=== PATIENT | male | born 1975 | race African-American/Black ===

== ENCOUNTER 2019-03-24 12:11 | Emergency (ER) | payer BC, MEDICAID ==
[~2019-03-24] VITALS: Ht 175.3 cm; Wt 71.7 kg
[2019-03-24] MEDS ORDERED: SODIUM CHLORIDE 0.9% 1,000 ML IV ONE ×2 (12:34)
[2019-03-24 13:10] LABS: Basophils # (auto) 0 uL; Eosinophils # (auto) 0 uL; Eosinophils % (auto) 0.1 % (0.0-7.0)
[2019-03-24 13:12] LABS: Basophils % (auto) 0.3 % (0.0-2.0); Hematocrit 40.7 % (41.0-53.0); Lymphocytes # (auto) 1.1 uL; Mean Corpuscular Hemoglobin 35.3 pg (28.0-32.0); Mean Corpuscular Hgb Conc. 34.4 g/dL (32.0-36.0); Mean Corpuscular Volume 102.5 fL (80.0-100.0); Monocytes # (auto) 0.7 uL; Neutrophils # (auto) 7.9 uL; Neutrophils % (auto) 81.6 % (37.0-80.0); Nucleated Red Blood Cells % 0.2 %; Platelet Count (auto) 134 10^3/uL (140-450); Red Blood Cells 3.97 10^6/uL (4.5-5.90); Red Cell Distribution Width 13.9 % (11.8-14.3); White Blood Cell 9.7 10^3/uL (4.4-10.8)
[2019-03-24 13:52] LABS: Albumin 3.8 g/dL (3.4-5.0); Calcium 8.8 mg/dL (8.5-10.1); Potassium 3.4 mmol/L (3.5-5.1)
[2019-03-24 13:55] LABS: BUN/Creatinine Ratio 8.6
[2019-03-24 13:56] LABS: Total Protein 7.4 g/dL (6.4-8.2)
[2019-03-24] MEDS ORDERED: POTASSIUM EFFERVESENT TAB 25 MEQ PO ONE (15:45)
[2019-03-24 17:45] VITALS: BP 126/79
== END 2019-03-24 17:58 | disposition home or self-care (01) ==
LOC: EDBD 12:11 → ER 12:32
DX: F44.5 Conversion disorder with seizures or convulsions (principal); E86.0 Dehydration; E87.6 Hypokalemia; R73.9 Hyperglycemia, unspecified
CPT/HCPCS: 36415; 70450; 80053; 80320; 84484; 85025; 93005; 96360; 96361; 99284; J7030